=== PATIENT | male | born 1980 | race Caucasian/White ===

== ENCOUNTER 2019-12-28 12:23 | Inpatient (IN) | payer BC, OTHER ==
[~2019-12-28 12:23] MED LIST: Heparin 1,000 UNITS/ML VIAL ONE
[2019-12-28 13:01] LABS: #Basophils 0.1 thou/uL (0.0-0.2); #Eosinphils 0.1 thou/uL (0.0-0.7); #Lymphocytes 1.2 thou/uL (1.20-3.40); #Monocytes 0.5 thou/uL (0.11-0.59); #Neutrophils 13.4 thou/uL (1.40-6.50); %Basophils 0.3 % (0.0-1.0); %Lymphocytes 7.8 % (21.0-51.0); %Monocytes 3.2 % (0.0-10.0); %Neutrophils 87.7 % (42.0-75.0); Hemoglobin 10.5 g/dL (14.0-18.0); Mean Corpuscular HGB CONC 32.9 g/dL (32.0-36.0); Mean Corpuscular Volume 85.2 fL (78.0-98.0); Mean Platelet Volume 6.5 fL (7.4-10.4); Platelet Count 390 thou/uL (130-400); RBC Distribution Width 13.8 % (11.5-14.5); Red Blood Cell (RBC) Count 3.74 mill/uL (4.70-6.10); White Blood Cell (WBC) Count 15.2 thou/uL (4.8-10.8)
[2019-12-28 13:21] LABS: ALT (SGPT) 73 U/L (8-55); AST (SGOT) 33 U/L (5-34); Albumin 3.1 g/dL (3.5-5.0); Alkaline Phosphatase 142 U/L (40-110); Anion Gap 14 mmol/L (10-20); BUN (Urea Nitrogen) 10 mg/dL (8.9-20.6); Bilirubin, Total 1.1 mg/dL (0.2-1.2); Calc. Creatinine Clearance 0 mL/min (70-130); Calcium 8.4 mg/dL (7.8-10.44); Carbon Dioxide 20 mmol/L (22-29); Chloride 99 mmol/L (98-107); Estimated GFR-MDRD Greater than 90; Globulin 2.6 g/dL (2.4-3.5); Glucose 138 mg/dL (70-105); Potassium 3.9 mmol/L (3.5-5.1); Protein, Total 5.7 g/dL (6.0-8.3); Sodium 129 mmol/L (136-145)
[2019-12-28] MEDS ORDERED: Azithromycin 500 MG VIAL ONE (13:37)
[2019-12-28] MEDS ORDERED: cefTRIAXone\\ROCEPHIN 2 GM VIAL ONE (13:37)
[2019-12-28] MEDS ORDERED: Magnesium 2 GM/50 ML BAG (IN WATER) ONE (13:37)
[2019-12-28] MEDS ORDERED: PROVENTIL INHALER 6.7 G (200 INHALATIONS) ONE (13:44)
[2019-12-28] MEDS ORDERED: Albuterol 200 PUFF (6.7GM INHALER) ONE (13:52)
[2019-12-28] MEDS ORDERED: Acetaminophen 325 MG TAB PO PRN (14:05)
--- NOTE | 2019-12-28 14:09 | RAD ---
CHEST 1 VIEW: HISTORY: Dyspnea and shortness of breath. COMPARISON: 12/25/2019. FINDINGS: Minimal cardiomegaly. Developing bilateral vascular congestion and alveolar parenchymal changes thro ughout both lungs. There is evidence for small bilateral pleural effusions. IMPRESSION: Progressive bilateral vascular congestion and interstitial and alveolar diffuse parenchymal changes w orsening from the prior study with evidence for minimal cardiomegaly and small pleural effusions favo red to be worsening edema versus diffuse bilateral pneumonitis/pneumonia. POS: RRE
[2019-12-28] MEDS ORDERED: Sodium Chloride 0.9% 1,000 ML IV SCH (14:15)
[2019-12-28] MEDS ORDERED: Aspirin Chewable 81 MG TAB ONE (14:25)
[2019-12-28 14:26] LABS: CKMB 1.6 ng/mL (0-6.6)
[2019-12-28 14:26] LABS: INR-International Normal Ratio 1.2; Prothrombin Time 15.4 SEC (12.0-14.7)
[2019-12-28 14:27] LABS: PTT 34.8 SEC (22.9-36.1)
[2019-12-28 15:21] LABS: Bacteria/HPF None Seen HPF (None Seen); Bilirubin Negative (Negative); Blood, Urine Negative (Negative); Clarity Clear (Clear); Glucose, Urine (Dipstick) Normal (Negative); Leukocyte Negative Leu/uL (Negative); Nitrite Negative (Negative); Protein, Urine (Dipstick) 50 mg/dL (Neg-Trace); RBC/HPF 0-3 HPF (0-3); Squamous Epithelial 0-3 HPF (0-3); Urobilinogen 3 mg/dL (Less than 2)
[2019-12-28] MEDS ORDERED: Furosemide 40 MG/4 ML VIAL ONE (16:15)
[2019-12-28] MEDS ORDERED: CCU Electrolyte Replacement 1 EACH FS ONE (16:17)
[2019-12-28] MEDS ORDERED: Potassium Phosphate 15 MMOL in Sodium Chloride 0.9% 250 ML 250 ML IV PRN (16:19)
[2019-12-28] MEDS ORDERED: Potassium Phosphate 12 MMOL in Sodium Chloride 0.9% 250 ML 250 ML IV PRN (16:19)
[2019-12-28] MEDS ORDERED: Magnesium Oxide 400 MG TAB PO PRN ×2 (16:19)
[2019-12-28] MEDS ORDERED: Potassium Chloride 40 MEQ in Sodium Chloride 0.9% 250 ML 250 ML IVPB PRN (16:19)
[2019-12-28] MEDS ORDERED: Potassium Chloride 20 MEQ TAB PO PRN (16:19)
[2019-12-28] MEDS ORDERED: CCU ELECTROLYTE REPLACEMENT PROTOCOL FS PRN (16:19)
[2019-12-28] MEDS ORDERED: PHOS-NAK 1 PKT PACK PO PRN ×2 (16:19)
[2019-12-28] MEDS ORDERED: Potassium Chloride 40 MEQ in Premix Bag 1 BAG IVPB PRN (16:19)
[2019-12-28] MEDS ORDERED: Potassium Phosphate 9 MMOL in Sodium Chloride 0.9% 100 ML IVPB PRN (16:19)
[2019-12-28] MEDS ORDERED: Magnesium 2 GM/50 ML 2 GM in Premix Bag 1 BAG IVPB PRN (16:19)
[2019-12-28] MEDS ORDERED: Furosemide 40 MG/4 ML VIAL SLOW IVP SCH (16:45)
[2019-12-28 17:24] VITALS: BMI 36.4
[2019-12-28 17:26] LABS: Legionella Urinary Ag Negative (Negative); Strep pneumo Urine Ag NEGATIVE (NEGATIVE)
[2019-12-28] MEDS: ALPRAZolam 0.5 MG TAB PO PRN (19:39)
[2019-12-28] MEDS: Famotidine 20 MG TAB PO SCH (20:29)
--- NOTE | 2019-12-28 20:54 | CON ---
DATE OF CONSULTATION: 12/28/2019 CONSULTING PHYSICIAN: Dr. Talavera from [facility]. REASON FOR CONSULTATION: Shortness of breath. HISTORY OF PRESENT ILLNESS: The patient is an extremely pleasant 39-year-old who presents with a 2-1/2 month history of an increasing chronic cough, shortness of breath that has worsened over the last two weeks, dyspnea with exertion. He says he is a patient of Dr. Haley. He is currently being worked up for cardiac concerns. He has had elevated blood pressure. He was scheduled for a stress test and echo which got put off due to the COVID-19 pandemic. The patient presented to the ER three days ago with similar symptoms. He had a COVID test that time was negative. He had complained of a low-grade fever at that time up to 99.3. He was sent home after being prescribed a Z-Sanford. The patient said his cough has been dry. It was originally attributed to the use of lisinopril. He stopped that medication and the cough did not improve. He has had orthopnea and paroxysmal nocturnal dyspnea. PAST MEDICAL HISTORY: 1. Hypertension. 2. Hypothyroidism. 3. Chronic kidney disease. 4. Nephrolithiasis. PAST SURGICAL HISTORY: Hernia repair and kidney stone removal. SOCIAL HISTORY: He does not smoke. Does not consume alcohol. Does not use illicit drugs. 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 ALLERGIES: IODINE. FAMILY MEDICAL HISTORY: Unremarkable for current or past exposure to COVID-19 virus. REVIEW OF SYSTEMS: No chest pain. No hemoptysis, melena, hematochezia. No hematuria. No dysuria. PHYSICAL EXAMINATION: VITAL SIGNS: His pulse is 119, blood pressure 132/52, O2 saturation 98%, respiratory rate was originally in the 30s now has dropped into the 20s. GENERAL: He is a heavyset male who is in some mild respiratory distress. HEENT: Remarkable for class 3 Mallampati airway. NECK: No adenopathy or JVD. LUNGS: He has inspiratory crackles at both bases. Clear at the apices. CARDIAC: S1, S2, tachycardic. He has a summation gallop. ABDOMEN: Soft and nontender to palpation. EXTREMITIES: No clubbing or cyanosis. Trace edema. LABORATORY DATA: His BNP was 480. C-reactive protein 7.8. Sodium 122, potassium 3.9, chloride 99, CO2 of 20, BUN 10, creatinine 0.7, glucose 138. Alkaline phosphatase 142, AST 33, ALT 73, albumin 3.1. Troponin 0.107. INR is 1.2, PTT 34.8. White blood cell count 15.2, hematocrit 31.8, and platelet count 390, with 87% neutrophils, 7% lymphocytes. His sedimentation rate was 15. Urinalysis shows some proteinuria. His x-ray shows bilateral lower lobe infiltrates. ASSESSMENT: This is a 39-year-old male presenting with a subacute history of increasing shortness of breath, dry cough, and an elevated BNP. Differential in this case would be congestive heart failure, infectious etiology such as COVID-19, or other infection. His BNP and slightly elevated troponin point to this being cardiac in etiology. However, his demographics including his age group would indicate that he is at risk for COVID-19. RECOMMENDATION: 1. Agree with COVID-19 isolation and repeating the test. 2. I would go ahead and give him a dose of diuretics to see if this will improve his breathing. 3. Trend his BNP. 4. Follow up repeat COVID serology testing. 5. We will withhold hydroxychloroquine and Zithromax at this time. Treating with a broad-spectrum antibiotic for atypical pneumonia would be okay. I will put him on some Levaquin for that. Thank you for the referral. Job ID: [id number]
--- NOTE | 2019-12-28 23:09 | HP ---
CHIEF COMPLAINT: Shortness of breath. HISTORY OF PRESENT ILLNESS: The patient is a very pleasant 39-year-old male, who presents to the hospital with complaints of shortness of breath. The patient has no significant medical history. The patient states that about in September, he was initially seen at [facility] with significant weakness on his right side. At this time, he was noted to have significantly elevated blood pressure. He stated that he was put on blood pressure medication. He took his blood pressure medications for about 35 days according to the patient and then he got an appointment with the primary care doctor who then noted that his blood pressure was low, so his medication was stopped. The patient stated that for the past few months, he has been visiting [facility] for various symptoms which have included low blood pressure. He recently visited [facility] about 2-1/2 weeks ago for a cough and shortness of breath, and at this time, he was tested for COVID which was negative. He then presented to our hospital on 12/24 with complaints of shortness of breath, and at this time, another COVID test was done which also was negative, and he was sent home with azithromycin and hydroxychloroquine. The patient states that he has been having shortness of breath on exertion. He denies any weight gain, however, is positive for orthopnea. He states he has been having a low-grade fever and a very dry nonproductive cough. Denies any sick contacts. PAST MEDICAL HISTORY: None. PAST SURGICAL HISTORY: He has had a kidney stone removed and sinus surgery. SOCIAL HISTORY: Denies any alcohol use, drug use, or smoking history. He is a full code. ALLERGIES: HE IS ALLERGIC TO IODINE. REVIEW OF SYSTEMS: All negative except for the ones mentioned above in the HPI. MEDICATIONS: He was supposed to be on azithromycin and hydroxychloroquine which were prescribed at his last visit. PHYSICAL EXAMINATION: VITAL SIGNS: Temperature of 98.8, blood pressure 130/54, heart rate of 119-120, 100% on room air. GENERAL: He is awake, alert, and oriented x3. Does not appear in significant distress. CV: S1, S2 present. Mildly tachycardic. LUNGS: He has some crackles to bilateral lower lung bases. No rhonchi or wheezes noted. ABDOMEN: Soft and nontender. Bowel sounds are present x2. Obese. EXTREMITIES: He has some lower extremity pitting edema. Pedal pulses are present x2. NEUROVASCULAR: No focal deficits noted. SKIN: No cuts, lesions, or bruises noted. LABORATORY DATA: CBC; WBCs of 15.2, hemoglobin of 10.5, hematocrit of 31.8. His platelets are 390. His ESR is 15. Sodium of 129, potassium of 3.9, BUN of 10, creatinine 0.78. His troponin 0.107. His CRP is 7.85. His BNP is 480. Mildly elevated ALT at 73. Alkaline phosphatase is 142. IMAGING STUDIES: He did have a chest x-ray which indicated bilateral vascular congestion and interstitial and alveolar diffuse parenchymal changes worsening from before. Minimal cardiomegaly was noted. ASSESSMENT AND PLAN: The patient is a 39-year-old male, who presents to the hospital with complaints of shortness of breath. 1. Shortness of breath. This could be infectious versus cardiac reasons. I am leaning more toward cardiac. He has had 2 negative COVID testing, that is what he told me, he had one done 2-1/2 weeks ago in [facility] and then another one done on the in our ER, and then he has another one that is pending. He has been on antibiotics with no significant effect. I will continue the antibiotics for now, however, I will go ahead and order an echocardiogram. His BNP has been mildly elevated. He does appear to have possible heart failure symptoms which we will continue to treat. He has been given Lasix. He had a good amount of diuresis. We will trend his troponins. His EKG did not have any significant changes. If this is early heart failure, we will have to get Cardiology involved. We will also check a TSH. 2. Mild leukocytosis, unclear at this time. We will continue to monitor. We will continue the antibiotics. 3. Mildly elevated LFTs and alkaline phosphatase. Again, this could be some vascular congestion. We will continue to monitor. 4. Hyponatremia. This again could be secondary to volume overload. We will continue to monitor. 5. DVT prophylaxis. We will put the patient on subcu Lovenox. Job ID: [id number]
[2019-12-29 04:30] LABS: #Eosinphils 0.2 thou/uL (0.0-0.7); #Lymphocytes 1.4 thou/uL (1.20-3.40); #Monocytes 0.8 thou/uL (0.11-0.59); #Neutrophils 14.8 thou/uL (1.40-6.50); %Basophils 0.2 % (0.0-1.0); %Eosinophils 1.3 % (0.0-10.0); %Lymphocytes 8.3 % (21.0-51.0); %Monocytes 4.5 % (0.0-10.0); %Neutrophils 85.7 % (42.0-75.0); Hemoglobin 10.2 g/dL (14.0-18.0); Mean Corpuscular HGB CONC 33.7 g/dL (32.0-36.0); Mean Corpuscular Hemoglobin 28.9 pg (27.0-31.0); Mean Corpuscular Volume 85.7 fL (78.0-98.0); Mean Platelet Volume 6.5 fL (7.4-10.4); Platelet Count 375 thou/uL (130-400); RBC Distribution Width 13.9 % (11.5-14.5); Red Blood Cell (RBC) Count 3.52 mill/uL (4.70-6.10); White Blood Cell (WBC) Count 17.2 thou/uL (4.8-10.8)
[2019-12-29 04:55] LABS: ALT (SGPT) 71 U/L (8-55); AST (SGOT) 35 U/L (5-34); Albumin 2.9 g/dL (3.5-5.0); Alkaline Phosphatase 141 U/L (40-110); Anion Gap 15 mmol/L (10-20); BUN (Urea Nitrogen) 8 mg/dL (8.9-20.6); Calc. Creatinine Clearance 264 mL/min (70-130); Calcium 8.3 mg/dL (7.8-10.44); Carbon Dioxide 18 mmol/L (22-29); Chloride 105 mmol/L (98-107); Estimated GFR-MDRD Greater than 90; Globulin 2.5 g/dL (2.4-3.5); Glucose 114 mg/dL (70-105); Potassium 3.9 mmol/L (3.5-5.1); Protein, Total 5.4 g/dL (6.0-8.3); Sodium 134 mmol/L (136-145)
--- NOTE | 2019-12-29 08:14 | PRG ---
DATE OF SERVICE: 12/29/2019 SUBJECTIVE: Adrián is breathing much better today than he was yesterday. He did receive some diuretics yesterday afternoon, diuresed 3500 mL. PHYSICAL EXAMINATION: VITAL SIGNS: His temperature is 96.7, pulse 105, blood pressure 114/46, O2 saturation 98%. HEENT: Unremarkable. NECK: No adenopathy or JVD. LUNGS: He has diminished crackles in the bases. CARDIAC: S1 and S2 regular with a summation gallop. ABDOMEN: Soft. EXTREMITIES: No edema. LABORATORY DATA: White blood cell count 17.2, hematocrit 30.2, platelet count 375. Sodium 134, potassium 3.9, chloride 105, CO2 of 18 creatinine 0.6, glucose 114. BNP is 458. Troponin 0.20. His urinary tests for Legionella and Strep were negative. The COVID test is negative, although he has had 2 negative COVID tests within the last week. ASSESSMENT: I think we are likely dealing with congestive heart failure, perhaps from diastolic dysfunction. RECOMMENDATIONS: I would recommend giving him another dose of diuretics. Recommend echocardiogram and perhaps even a Cardiology consultation. He is stable for transfer to the telemetry unit. Job ID: [id number]
[2019-12-29] MEDS: Famotidine 20 MG TAB PO SCH ×2 (08:56→19:57)
[2019-12-29] MEDS: Enoxaparin Sodium 40 MG/0.4 ML SYRINGE SC SCH (08:56)
[2019-12-29] MEDS ORDERED: Furosemide 40 MG/4 ML VIAL SLOW IVP SCH (09:00)
[2019-12-29] MEDS: ALPRAZolam 0.5 MG TAB PO PRN ×2 (09:03→20:05)
[2019-12-29] MEDS: cefTRIAXone\\ROCEPHIN 2 GM in Sodium Chloride 0.9% 100 ML IVPB SCH (13:59)
--- NOTE | 2019-12-29 18:32 | PDOC.HOSPP ---
- Subjective Encounter Date: 12/29/19 Encounter Time: 17:00 Subjective: pt up in bed is having chills. No chest pain or sob - Objective Vital Signs & Weight: Vital Signs (12 hours) Temp Pulse Resp BP Pulse Ox 12/29/19 16:15 97.5 F L 105 H 24 H 104/51 L 98 12/29/19 11:49 97.4 F L 105 H 30 H 103/47 L 100 12/29/19 11:00 38 H 12/29/19 08:00 97.1 F L 100 12/29/19 06:45 100 Weight Admit Weight 276 lb 7.355 oz Weight 276 lb 7.355 oz Most Recent Monitor Data Heart Rate from ECG 107 NIBP 104/46 NIBP BP-Mean 65 Respiration from ECG 44 SpO2 99 I&O: 12/28/19 12/29/19 12/30/19 06:59 06:59 06:59 Intake Total 300 540 Output Total 3550 1725 Balance -0150 -1587 Result Diagrams: 12/29/19 04:04 12/29/19 04:04 Hospitalist ROS - Review of Systems Constitutional: reports: chills Respiratory: denies: cough, dry, shortness of breath, hemoptysis, SOB with excertion, pleuritic pain, sputum, wheezing, other Cardiovascular: denies: chest pain, palpitations, orthopnea, paroxysmal noc. dyspnea, edema, light headedness, other Gastrointestinal: denies: nausea, vomiting, abdominal pain, diarrhea, constipation, melena, hematochezia, other - Medication Medications: Active Medications Generic Name Dose Route Start Last Admin Trade Name Kaliaq PRN Reason Stop Dose Admin Alprazolam 0.5 mg 12/28/19 18:41 12/29/19 09:03 Xanax PO 0.5 mg BIDPRN PRN Administration Anxiety Enoxaparin Sodium 40 mg 12/29/19 09:00 12/29/19 08:56 Lovenox SC 40 mg 0900 BRITTANY Administration Famotidine 20 mg 12/28/19 21:00 12/29/19 08:56 Pepcid PO 20 mg BID BRITTANY Administration Furosemide 40 mg 12/29/19 09:00 12/29/19 08:58 Lasix SLOW IVP 40 mg DAILY BRITTANY Administration Ceftriaxone Sodium 2 gm/ 100 mls @ 200 mls/hr 12/29/19 13:15 12/29/19 13:59 Sodium Chloride IVPB 100 mls Q24HR BRITTANY Administration - Exam Neck: negative: supple, symmetric, no JVD, no thyromegaly, no lymphadenopathy, no carotid bruit, JVD Heart: negative: RRR, no murmur, no gallops, no rubs, normal peripheral pulses, irregular, diminshed peripheral pulses, murmur present, II/IV, III/IV Respiratory - other findings: diminished breath sound to bases Gastrointestinal: negative: soft, non-tender, non-distended, normal bowel sounds , no palpable masses, no hepatomegaly, no splenomegaly, no bruit, no guarding, no rigidity, tender to palpation, distended, diminished bowl sounds, voluntary guarding Extremities: 1+ LE edema Hosp A/P (1) Sepsis Code(s): A41.9 - SEPSIS, UNSPECIFIED ORGANISM Status: Acute (2) Heart failure Code(s): I50.9 - HEART FAILURE, UNSPECIFIED Status: Acute (3) Obesity Code(s): E66.9 - OBESITY, UNSPECIFIED Status: Acute (4) LFTs abnormal Code(s): R94.5 - ABNORMAL RESULTS OF LIVER FUNCTION STUDIES Status: Acute (5) Elevated troponin Code(s): R79.89 - OTHER SPECIFIED ABNORMAL FINDINGS OF BLOOD CHEMISTRY Status : Acute (6) Bacteremia Code(s): R78.81 - BACTEREMIA Status: Acute (7) Leukocytosis Code(s): D72.829 - ELEVATED WHITE BLOOD CELL COUNT, UNSPECIFIED Status: Acute - Plan pt has had 2 covid testing one in [facility] and one here on 12/24 which has been negative. will have third one that is pending. His blood cx indicate streptococcus. ID has been consulted. echo ordered. will hold off on iv lasix.
--- NOTE | 2019-12-29 20:08 | CON ---
DATE OF CONSULTATION: 12/29/2019 REASON FOR CONSULTATION: Possible COVID versus an alternate infectious process. HISTORY OF PRESENT ILLNESS: A 39-year-old with history of hypertension and nephrolithiasis, who has been sick since the end of October with general malaise and then fever. He initially felt that would be a transient illness, but due to persistence, he saw his primary physician, end up in the emergency room, had COVID test, which was negative recently. Because of persistence of symptoms, he was brought in, readmitted and placed in isolation and he is now in the COVID rule out unit with a second test pending. He is somewhat diaphoretic. He denies headaches. No visual symptoms, sore throat, odynophagia, or dysphagia. No anosmia. No back pain or neck pain. No chest pain. Coughing, but no sputum production. Mild dyspnea. No abdominal pain or diarrhea. No genitourinary symptoms. No joint symptoms. No neurological symptoms. PAST MEDICAL HISTORY: Nephrolithiasis, hypertension, and hypothyroidism. 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 Has a and two children. He does not smoke. No alcoholic beverage use. No drug use. FAMILY HISTORY: Noncontributory. ALLERGIES: IODINE. MEDICATIONS: He had not been taking any medication other than OTC. Now he is on: 1. Levofloxacin. 2. Lovenox. 3. Xanax. 4. Pepcid. 5. Magnesium. 6. Potassium. PHYSICAL EXAMINATION: VITAL SIGNS: With a T-max 100.8, blood pressure 103/47, pulse 105, respirations 30, and O2 saturation 100. GENERAL: Appears a little bit apprehensive. He is oriented. Follows commands. SKIN: Normal. There is no lymphadenopathy. HEENT: Ocular movements conjugate. Conjunctivae normal. Oral cavity normal. Teeth in good shape. NECK: Supple. No jugular vein distention. No thyromegaly. No tenderness. LUNGS: Symmetric air entry. HEART: Showed diminished heart sounds. S1 and S2. No obvious murmurs. No S3. Regular rate. ABDOMEN: Soft, not distended or tender. No ascites. No bladder distention. EXTREMITIES: No joint inflammatory activity. NEURO: Nonfocal including cognitive function. LABORATORY DATA: White cell count is 15.2 and now 17.2, hemoglobin 10.2, MCV 85 , and platelets 375 with 85% neutrophils. INR 1.2. Creatinine 0.68, sodium 134, AST 35, ALT 71, and alkaline phosphatase 141. Troponin 0.2 and BNP was 458. Albumin 2.9. Procalcitonin 0.18. Urinalysis; 4 to 6 wbc's, 50 protein, and 3 urobilinogen. Strep pneumoniae antigen and Legionella antigen in urine negative. The second COVID test is pending. The patient had a chest CT three days ago, which demonstrated multifocal infiltrates more central than peripheral and now we have 2 sets of blood cultures with Streptococcus species obtained about 15 minutes apart. ASSESSMENT: 1. Protracted febrile illness, now going on two months with some cough, general malaise, and dyspnea. 2. Bilateral pulmonary infiltrates. 3. Neutrophilia. 4. Streptococcal bacteremia. DISCUSSION: Differential diagnosis includes endocarditis due to viridans Streptococcus as the more likely scenario, covid is less likely. The second test is pending though. We will have to wait for that before we remove him from isolation and order an echo and then may be a transesophageal echocardiogram. We will wait for the identification of the organism. In the meantime, we will switch him to Rocephin. Other possibilities such as an intraabdominal inflammatory process are less likely community-acquired pneumonia due to a Streptococcus, non-Strep pneumonia is not likely, but not completely ruled out. There is no evidence of any spinal or other bone/joint inflammatory process at the moment. Job ID: [id number] MTDD
[2019-12-30 05:23] LABS: Anion Gap 13 mmol/L (10-20); BUN (Urea Nitrogen) 11 mg/dL (8.9-20.6); Calc. Creatinine Clearance 264 mL/min (70-130); Calcium 8.2 mg/dL (7.8-10.44); Carbon Dioxide 21 mmol/L (22-29); Chloride 104 mmol/L (98-107); Estimated GFR-MDRD Greater than 90; Glucose 110 mg/dL (70-105); Potassium 3.7 mmol/L (3.5-5.1); Sodium 134 mmol/L (136-145)
[2019-12-30 05:24] LABS: ALT (SGPT) 74 U/L (8-55); AST (SGOT) 35 U/L (5-34); Albumin 2.8 g/dL (3.5-5.0); Alkaline Phosphatase 136 U/L (40-110); Bilirubin, Direct 0.4 mg/dL (0.1-0.3); Bilirubin, Total 0.7 mg/dL (0.2-1.2); Protein, Total 5.2 g/dL (6.0-8.3)
[2019-12-30 05:26] LABS: #Basophils 0.1 thou/uL (0.0-0.2); #Eosinphils 0.4 thou/uL (0.0-0.7); #Lymphocytes 1.6 thou/uL (1.20-3.40); #Monocytes 0.9 thou/uL (0.11-0.59); #Neutrophils 13.4 thou/uL (1.40-6.50); %Basophils 0.3 % (0.0-1.0); %Eosinophils 2.3 % (0.0-10.0); %Lymphocytes 9.7 % (21.0-51.0); %Monocytes 5.5 % (0.0-10.0); %Neutrophils 82.2 % (42.0-75.0); Hemoglobin 10.1 g/dL (14.0-18.0); Mean Corpuscular HGB CONC 30.5 g/dL (32.0-36.0); Mean Corpuscular Hemoglobin 26.8 pg (27.0-31.0); Mean Corpuscular Volume 88.1 fL (78.0-98.0); Platelet Count 425 thou/uL (130-400); RBC Distribution Width 14.1 % (11.5-14.5); Red Blood Cell (RBC) Count 3.75 mill/uL (4.70-6.10); White Blood Cell (WBC) Count 16.3 thou/uL (4.8-10.8)
[2019-12-30 05:45] LABS: HBSAg Index 0.13 S/CO (0-0.99); Hep A IgM AB Non-Reactive (NonReactive); Hep A IgM S/CO 0.08 S/CO (0-0.79); Hep B Surf Ag Non-Reactive S/CO (NonReactive); Hep C IgG Ab Non-Reactive (NonReactive); Hep C Index 0.15 S/CO (0-0.79); Hepatitis B Core IgM Abs Non-Reactive (NonReactive)
[2019-12-30] MEDS: Famotidine 20 MG TAB PO SCH ×2 (08:30→19:54)
[2019-12-30] MEDS: Enoxaparin Sodium 40 MG/0.4 ML SYRINGE SC SCH (08:30)
--- NOTE | 2019-12-30 11:08 | PRG ---
DATE OF SERVICE: SUBJECTIVE: Adrián Arora is a 39-year-old gentleman. This morning, he is awake, alert, and responsive. OBJECTIVE: VITAL SIGNS: Temperature 96, pulse 107, respirations 18, sats 91 on 2 L, blood pressure 100/52. CHEST: No wheezing. Minimal crackles. CARDIAC: Normal S1 and S2. ABDOMEN: No masses. ASSESSMENT: His chest x-ray looks like CHF. He had alpha hemolytic strep in the blood. Sepsis, probably present antibiotic. White count is 16,000. Streptococcus sepsis, pneumonia. Continue ceftriaxone. Infectious Disease consulted. Trying to get him off isolation once he had his serology back for the coronavirus. Pulmonary will follow. Job ID: [id number]
--- NOTE | 2019-12-30 12:19 | PDOC.HOSPP ---
- Subjective Encounter Date: 12/30/19 Encounter Time: 09:15 Subjective: no cough or expectoration awake and responds well no chest pain no h/o iv drug use in his life except for occasional thc use - Objective Vital Signs & Weight: Vital Signs (12 hours) Temp Pulse Resp BP Pulse Ox 12/30/19 11:15 97.6 F 106 H 20 102/53 L 98 12/30/19 08:35 96.8 F L 107 H 18 104/52 L 97 12/30/19 07:07 95 12/30/19 05:00 98.3 F 108 H 22 H 108/49 L 95 12/30/19 01:30 96.9 F L 106 H 22 H 106/50 L 98 Weight Admit Weight 276 lb 7.355 oz Weight 276 lb 7.355 oz Most Recent Monitor Data Heart Rate from ECG 107 NIBP 104/46 NIBP BP-Mean 65 Respiration from ECG 44 SpO2 99 I&O: 12/29/19 12/30/19 12/31/19 06:59 06:59 06:59 Intake Total 300 2540 Output Total 3550 2875 Balance -3250 -335 Result Diagrams: 12/30/19 04:35 12/30/19 04:35 Hospitalist ROS - Medication Medications: Active Medications Generic Name Dose Route Start Last Admin Trade Name Freq PRN Reason Stop Dose Admin Alprazolam 0.5 mg 12/28/19 18:41 12/29/19 20:05 Xanax PO 0.5 mg BIDPRN PRN Administration Anxiety Enoxaparin Sodium 40 mg 12/29/19 09:00 12/30/19 08:30 Lovenox SC 40 mg 0900 BRITTANY Administration Famotidine 20 mg 12/28/19 21:00 12/30/19 08:30 Pepcid PO 20 mg BID BRITTANY Administration Ceftriaxone Sodium 2 gm/ 100 mls @ 200 mls/hr 12/29/19 13:15 12/29/19 13:59 Sodium Chloride IVPB 100 mls Q24HR BRITTANY Administration - Exam General Appearance: awake alert Eye: PERRL, anicteric sclera ENT: no oropharyngeal lesions, moist mucosa Neck: supple, no JVD Heart: RRR, no murmur Respiratory: no wheezes, no rales Gastrointestinal: soft, non-tender, non-distended, normal bowel sounds Extremities: no cyanosis, no edema Neurological: cranial nerve grossly intact, no focal deficits Psychiatric: normal affect, A&O x 3 Hosp A/P (1) Sepsis Code(s): A41.9 - SEPSIS, UNSPECIFIED ORGANISM Status: Acute Qualifiers: Sepsis type: Streptococcus, unspecified Severe sepsis shock status: without septic shock (2) Streptococcal bacteremia Code(s): R78.81 - BACTEREMIA; B95.5 - UNSP STREPTOCOCCUS THE CAUSE OF DISEASES CLASSD ELSWHR Status: Acute (3) Acute exacerbation of CHF (congestive heart failure) Code(s): I50.9 - HEART FAILURE, UNSPECIFIED Status: Acute Qualifiers: Heart failure type: diastolic Qualified Code(s): I50.33 - Acute on chronic diastolic (congestive) heart failure (4) Hypothyroidism Code(s): E03.9 - HYPOTHYROIDISM, UNSPECIFIED Status: Chronic Qualifiers: Hypothyroidism type: unspecified Qualified Code(s): E03.9 - Hypothyroidism , unspecified (5) Obesity Code(s): E66.9 - OBESITY, UNSPECIFIED Status: Chronic Qualifiers: Obesity classification: adult class 2 (BMI 35 - 39.9) (6) Chronic anemia Code(s): D64.9 - ANEMIA, UNSPECIFIED Status: Chronic - Plan is on ceftriaxone, await full culture results blood cs x2 is +ve for alpha hemolytic strep had covid 19 test x2 on 12/[facility] and 12/26 here both were -ve dc airborne and droplet precautions echo is pending, likely KATHLEEN hemostable
[2019-12-30] MEDS: cefTRIAXone\\ROCEPHIN 2 GM in Sodium Chloride 0.9% 100 ML IVPB SCH (13:03)
[2019-12-30] MEDS: ALPRAZolam 0.5 MG TAB PO PRN ×2 (13:36→23:19)
--- NOTE | 2019-12-30 23:36 | PRG ---
DATE OF SERVICE: 12/30/2019 SUBJECTIVE: Feeling better. No respiratory symptoms. No abdominal pain anymore. No low back pain. OBJECTIVE: VITAL SIGNS: His temperature normalized. O2 saturations are 100%. BP 107/52. Pulse 109. GENERAL: Awake, alert, and oriented. LUNGS: Clear. HEART: S1 and S2, regular rate. ABDOMEN: Soft, nondistended. NEURO: Nonfocal. LABORATORY DATA: White cell count 16.3, hemoglobin is 10.1, platelets 425, 82% neutrophils, total neutrophil count started at 13.4 and is still at 13.4 at the moment. Chemistry with a creatinine 0.68, AST 35, ALT 74, and alkaline phosphatase 136. It looks like a repeat COVID test was negative. The echocardiogram report demonstrates EF of 55%, normal right ventricle, normal aortic valve, mild tricuspid regurgitation. ASSESSMENT AND DISCUSSION: Protracted febrile illness, some cough, dry malaise, dyspnea, bilateral pulmonary infiltrates, neutrophilia, and streptococcal bacteremia. The 2D echo read two valves as normal. The other valves will need to be commented on and he may need a transesophageal echocardiography. The Streptococcus was identified as alpha hemolytic. We will go ahead and image his abdomen and pelvis to rule out hepatic abscess or other intraabdominal inflammatory process and then go from there. Job ID: [id number]
--- NOTE | 2019-12-31 01:45 | CON ---
DATE OF CONSULTATION: 12/30/2019 INDICATION FOR CONSULTATION: A 39-year-old gentleman who has been having febrile illnesses for the last couple of months after he underwent a procedure for nephrolithiasis. He said he has not been feeling well since that time, and he has actually been tested twice and ruled out for COVID-19. He continued to have symptoms with not feeling well, palpitations, tachycardia, somewhat diaphoretic. He had an echocardiogram performed today, which showed a normal ejection fraction of 50% to 55% and did not have any significant evidence of vegetations on any of the valves, but he apparently has positive blood cultures for I believe strep, and since he has positive blood cultures and I did not see things specifically on the echocardiogram, it is best that he undergo a transesophageal echocardiogram and this has been ordered I believe. I have seen the patient today and discussed this with him. We will plan for transesophageal echocardiogram on Wednesday. I did explain to him that should he be found to have endocarditis, then he will need to be on long-term antibiotics for at least IV, most likely for 6 weeks. As far as his past medical history, he has no previous cardiac history that he is aware of. He had some history of hypertension at the time of the nephrolithiasis and also has hypothyroidism. He was started on actually lisinopril. I thought this may have been the etiology of his symptoms with the shortness of breath and also the not feeling well, the fevers, and the coughing. SOCIAL HISTORY: He is an commercial subcontractor, working with natural gas. He is , has 2 children. He has no alcohol or tobacco abuse. No other illicit drug use. FAMILY HISTORY: No family history of early heart disease. ALLERGIES: HE IS ALLERGIC TO THE IODINE. MEDICATIONS: He is on antibiotics in the form of levofloxacin. He is on Lovenox. He is taking magnesium, potassium, and Pepcid. REVIEW OF SYSTEMS: A 12-point review of systems is relatively unremarkable except for what is noted in the history of present illness. PHYSICAL EXAMINATION: GENERAL: Reveals a well-developed, well-nourished gentleman, who is in no acute distress at this time. He is alert. He is oriented. He is very pleasant. VITAL SIGNS: Blood pressure is 107/52; heart rate is 109 to 114, appears to be sinus tach; respiratory rate 25. He is afebrile. O2 saturation is 100%. HEENT: Shows the head to be normocephalic and atraumatic. Carotid pulses are present without any bruits. CHEST: Clear to auscultation. I did not hear any rales, rhonchi, or wheezing. CARDIOVASCULAR: Reveals a tachycardia. He has a very soft systolic murmur over the upper sternal border. Otherwise, there were no diastolic murmurs that I could elicit. ABDOMEN: Soft and nontender. EXTREMITIES: Show no clubbing, cyanosis, or edema. No ecchymosis. NEUROLOGIC: He appears to be intact. LABORATORY DATA: Most recent shows a WBC of 16.3, hemoglobin was 10, hematocrit was 33, platelet count was 425,000. His sodium was 134, potassium is 3.7, chloride was 104, bicarb was 21, BUN was 11 with a creatinine of 0.68. Blood sugar was 110. His BNP yesterday was 458. Troponin I was 0.2, which may be due to the tachycardia. He has also had a troponin I on admission of 0.107. C-reactive protein was elevated at 7.85. AST was 35 and ALT was 74. Alkaline phosphatase was 136. These are all elevated. IMPRESSION: Febrile illness of uncertain etiology with evidence of streptococcal infection on the blood cultures that were drawn on 12/27, with no evidence of vegetations noted on the transthoracic echocardiogram. We will plan for a transesophageal echocardiogram on Wednesday. He will continue on the antibiotics. We appreciate you asking us for this consultation. We will be more than happy to continue to follow the patient with you throughout this hospital course. As far as his other medical problems, these will be dealt with by the primary care service. Job ID: [id number]
[2019-12-31 05:10] LABS: Anion Gap 13 mmol/L (10-20); BUN (Urea Nitrogen) 12 mg/dL (8.9-20.6); Calc. Creatinine Clearance 260 mL/min (70-130); Calcium 8.3 mg/dL (7.8-10.44); Carbon Dioxide 22 mmol/L (22-29); Chloride 105 mmol/L (98-107); Estimated GFR-MDRD Greater than 90; Glucose 111 mg/dL (70-105); Potassium 3.7 mmol/L (3.5-5.1); Sodium 136 mmol/L (136-145)
[2019-12-31] MEDS: Famotidine 20 MG TAB PO SCH ×2 (07:49→20:02)
[2019-12-31] MEDS: Enoxaparin Sodium 40 MG/0.4 ML SYRINGE SC SCH (07:49)
--- NOTE | 2019-12-31 10:17 | PDOC.HOSPP ---
- Subjective Encounter Date: 12/31/19 Encounter Time: 09:00 Subjective: no chest pain or sob or palp is ambulating in room no abd pain or nausea - Objective Vital Signs & Weight: Vital Signs (12 hours) Temp Pulse Resp BP Pulse Ox 12/31/19 07:19 96 12/31/19 07:05 98 F 111 H 20 104/51 L 96 12/31/19 04:00 98.6 F 107 H 30 H 106/53 L 97 12/30/19 23:05 99.1 F 109 H 25 H 107/51 L 98 Weight Admit Weight 276 lb 7.355 oz Weight 276 lb 7.355 oz Most Recent Monitor Data Heart Rate from ECG 107 NIBP 104/46 NIBP BP-Mean 65 Respiration from ECG 44 SpO2 99 I&O: 12/30/19 12/31/19 01/01/20 06:59 06:59 06:59 Intake Total 2540 Output Total 2875 Balance -335 Result Diagrams: 12/30/19 04:35 12/31/19 04:18 Hospitalist ROS - Medication Medications: Active Medications Generic Name Dose Route Start Last Admin Trade Name Freq PRN Reason Stop Dose Admin Alprazolam 0.5 mg 12/28/19 18:41 12/30/19 23:19 Xanax PO 0.5 mg BIDPRN PRN Administration Anxiety Enoxaparin Sodium 40 mg 12/29/19 09:00 12/31/19 07:49 Lovenox SC 40 mg 0900 BRITTANY Administration Famotidine 20 mg 12/28/19 21:00 12/31/19 07:49 Pepcid PO 20 mg BID BRITTANY Administration Ceftriaxone Sodium 2 gm/ 100 mls @ 200 mls/hr 12/29/19 13:15 12/30/19 13:03 Sodium Chloride IVPB 100 mls Q24HR BRITTANY Administration - Exam General Appearance: awake alert Eye: PERRL, anicteric sclera ENT: no oropharyngeal lesions, moist mucosa Neck: supple, no JVD Heart: RRR, no murmur Respiratory: no wheezes, no rales Gastrointestinal: soft, non-tender, non-distended, normal bowel sounds Extremities: no cyanosis, no edema Neurological: cranial nerve grossly intact, no focal deficits Psychiatric: normal affect, A&O x 3 Hosp A/P (1) Sepsis Code(s): A41.9 - SEPSIS, UNSPECIFIED ORGANISM Status: Acute Qualifiers: Sepsis type: Streptococcus, unspecified Severe sepsis shock status: without septic shock (2) Streptococcal bacteremia Code(s): R78.81 - BACTEREMIA; B95.5 - UNSP STREPTOCOCCUS THE CAUSE OF DISEASES CLASSD ELSWHR Status: Acute (3) Acute exacerbation of CHF (congestive heart failure) Code(s): I50.9 - HEART FAILURE, UNSPECIFIED Status: Acute Qualifiers: Heart failure type: diastolic Qualified Code(s): I50.33 - Acute on chronic diastolic (congestive) heart failure (4) Hypothyroidism Code(s): E03.9 - HYPOTHYROIDISM, UNSPECIFIED Status: Chronic Qualifiers: Hypothyroidism type: unspecified Qualified Code(s): E03.9 - Hypothyroidism , unspecified (5) Obesity Code(s): E66.9 - OBESITY, UNSPECIFIED Status: Chronic Qualifiers: Obesity classification: adult class 2 (BMI 35 - 39.9) (6) Chronic anemia Code(s): D64.9 - ANEMIA, UNSPECIFIED Status: Chronic - Plan is on ceftriaxone, await full culture results blood cs x2 is +ve for alpha hemolytic strep had covid 19 test x2 on 12/25 at [facility] and 12/26 here both were -ve dc airborne and droplet precautions echo TTE shows no obvious veg, likely KATHLEEN in am CT abd to r/o abscess, contrast per in view of iodine allergy? hemostable
--- NOTE | 2019-12-31 11:51 | PRG ---
DATE OF SERVICE: 12/31/2019 SUBJECTIVE: Adrián Arora this morning is doing well. OBJECTIVE: VITAL SIGNS: Temperature 98, pulse 111, respiratory rate 20, oxygen saturation 90% on room air, blood pressure 100/51. CHEST: No wheezing, no crackles. CARDIAC: Normal S1, S2. No gallops. ABDOMEN: No mass. LABORATORY DATA: His serology for coronavirus negative. Lytes were normal. Echo was normal. ASSESSMENT: Alpha Strep sepsis. Possible diastolic dysfunction, possibly pneumonia. PLAN: Antibiotics per Infectious Disease. PT supportive care. We will follow. Job ID: [id number]
--- NOTE | 2019-12-31 12:50 | PDOC.CPN ---
- Subjective Date: 12/31/19 Time: 12:56 Interval history: The pt seen and examined. No overnight events. No cardiac complaints. The pt denied any questions or concerns about KATHLEEN - Objective Allergies/Adverse Reactions: Allergies Allergy/AdvReac Type Severity Reaction Status Date / Time Iodine and Iodide Containing Allergy Unknown Verified 12/29/19 15:09 Produc Visit Medications: Current Medications Acetaminophen (Tylenol) 650 mg PO Q4H PRN PRN Reason: Headache/Fever/Mild Pain (1-3) Alprazolam (Xanax) 0.5 mg PO BIDPRN PRN PRN Reason: Anxiety Last Admin: 12/30/19 23:19 Dose: 0.5 mg Carvedilol (Coreg) 1.5625 mg PO NOW [facility] Carvedilol (Coreg) 1.5625 mg PO BID[facility] Enoxaparin Sodium (Lovenox) 40 mg SC 0900 [facility] Last Admin: 12/31/19 07:49 Dose: 40 mg Famotidine (Pepcid) 20 mg PO BID [facility] Last Admin: 12/31/19 07:49 Dose: 20 mg Ceftriaxone Sodium 2 gm/ (Sodium Chloride) 100 mls @ 200 mls/hr IVPB Q24HR [facility] Last Admin: 12/30/19 13:03 Dose: 100 mls Vital Signs & Weight: Vital Signs Temp Pulse Resp BP Pulse Ox 12/31/19 11:03 97.4 F L 108 H 20 107/53 L 98 12/31/19 07:19 96 12/31/19 07:05 98 F 111 H 20 104/51 L 96 12/31/19 04:00 98.6 F 107 H 30 H 106/53 L 97 Admit Weight 276 lb 7.355 oz Weight 276 lb 7.355 oz - Physical Exam General: alert & oriented x3 HEENT: mucus membranes moist Neck: supple neck Cardiac: regular rate and rhythm, S1/S2 Lungs: clear to auscultation - Labs Result Diagrams: 12/30/19 04:35 12/31/19 04:18 Troponin/CKMB CK-MB (CK-2) 1.6 ng/mL (0-6.6) 12/28/19 12:44 Troponin I 0.200 ng/mL (< 0.028) H 12/29/19 04:04 - Telemetry Sinus rhythms and dysrhythmias: sinus rhythm - Assessment/Plan Assessment/Plan: 1. Sepsis 2/2 Streptococcal infection - plan for KATHLEEN on Wednesday 2. Episodes of NSVTs - Asymptomatic; will start Coreg 3.125mg 1/2 tab BID and check Mg level; 3. Chronic anemia MAR reviewed * Echo on 12/30/2019 with EF 50-55%, mild-mod LAE, mild MR and TR Pt. seen and eval. by me. I agree with the A/P by the GUN PROFILER. Dr. Sawant would like a CT of the abdomen and if negative for a site of infection then plan for KATHLEEN. I can do the KATHLEEN at any time. Await CT result. dre
[2019-12-31] MEDS ORDERED: Carvedilol 3.125 MG TAB PO SCH (13:00)
[2019-12-31] MEDS: cefTRIAXone\\ROCEPHIN 2 GM in Sodium Chloride 0.9% 100 ML IVPB SCH (13:13)
--- NOTE | 2019-12-31 16:52 | PRG ---
DATE OF SERVICE: 12/31/2019 SUBJECTIVE: Feeling better each day. No headaches, respiratory symptoms, or abdominal pain. Voiding without difficulty. OBJECTIVE: VITAL SIGNS: Continues to be afebrile, T-max 99.1; BP 107/53; pulse 108, respirations 20; O2 saturations 98%. HEENT: Normal. LUNGS: Clear. ABDOMEN: Soft, not distended. HEART: S1 and S2. Regular rate. NEURO: Nonfocal. LABORATORY DATA: White cell count last checked yesterday was 16.3, hemoglobin 10.1, platelets 425, 82% neutrophils. A CT is pending. The patient had to be given protocol because of reported iodine allergy. ASSESSMENT AND DISCUSSION: Febrile illness protracted with Streptococcus viridans bacteremia, possibility of endocarditis is high in the differential diagnosis, but we will check a CT of the abdomen prior to KATHLEEN. If CT is normal, then a KATHLEEN will be the next step to define the discharge planning in terms of duration and type of antimicrobial. Job ID: [id number]
[2019-12-31] MEDS ORDERED: predniSONE 50 MG TAB PO SCH (17:30)
[2019-12-31] MEDS ORDERED: diphenhydrAMINE 50 MG CAP PO SCH ×2 (17:30)
[2019-12-31] MEDS: ALPRAZolam 0.5 MG TAB PO PRN (17:42)
[2019-12-31] MEDS: Carvedilol 3.125 MG TAB PO SCH (20:03)
[2019-12-31] MEDS: predniSONE 50 MG TAB PO SCH (20:04)
[2020-01-01] MEDS: predniSONE 50 MG TAB PO SCH ×2 (01:40→07:44)
[2020-01-01] MEDS: Carvedilol 3.125 MG TAB PO SCH ×2 (07:44→20:03)
[2020-01-01] MEDS: Enoxaparin Sodium 40 MG/0.4 ML SYRINGE SC SCH (07:44)
[2020-01-01] MEDS: Famotidine 20 MG TAB PO SCH ×2 (07:44→20:03)
[2020-01-01] MEDS: ALPRAZolam 0.5 MG TAB PO PRN ×2 (07:45→20:03)
[2020-01-01] MEDS ORDERED: diphenhydrAMINE 50 MG CAP PO SCH (08:00)
--- NOTE | 2020-01-01 08:26 | PRG ---
DATE OF SERVICE: 01/01/2020 SUBJECTIVE: The patient has been moved out to the floor. He is actually breathing better. Has no acute complaints. OBJECTIVE: VITAL SIGNS: Temperature 96.2, pulse 104, respirations 18, O2 saturation 96% on 2 L, and blood pressure 112/53. Intake 1740, output 1200. HEENT: Unremarkable. NECK: No JVD. LUNGS: Fairly clear. CARDIAC: S1, S2. Slightly tachycardic. ABDOMEN: Soft. EXTREMITIES: No edema. LABORATORY DATA: No new labs were taken today. ASSESSMENT: 1. Strep viridans infection, source not clear. 2. Pneumonitis versus pulmonary edema from diastolic heart dysfunction. PLAN: Looks like he will eventually have a KATHLEEN to clear his heart valves. He will probably need prolonged antibiotics with strep viridans. We will continue to follow with you. Job ID: [id number]
--- NOTE | 2020-01-01 09:48 | PDOC.HOSPP ---
- Subjective Encounter Date: 01/01/20 Encounter Time: 09:00 Subjective: no sob or chest pain is ambulating in room drinking oral contrast for CT - Objective Vital Signs & Weight: Vital Signs (12 hours) Temp Pulse Resp BP BP Pulse Ox 01/01/20 07:48 96.2 F L 104 H 18 112/53 L 96 01/01/20 03:16 96.0 F L 104 H 20 116/55 L 95 12/31/19 23:31 97.5 F L 107 H 20 111/56 L 97 Weight Admit Weight 276 lb 7.355 oz Weight 276 lb 7.355 oz Most Recent Monitor Data Heart Rate from ECG 107 NIBP 104/46 NIBP BP-Mean 65 Respiration from ECG 44 SpO2 99 I&O: 12/31/19 01/01/20 01/02/20 06:59 06:59 06:59 Intake Total 1740 Output Total 1200 Balance 540 Result Diagrams: 12/30/19 04:35 12/31/19 04:18 Hospitalist ROS - Medication Medications: Active Medications Generic Name Dose Route Start Last Admin Trade Name Freq PRN Reason Stop Dose Admin Alprazolam 0.5 mg 12/28/19 18:41 01/01/20 07:45 Xanax PO 0.5 mg BIDPRN PRN Administration Anxiety Carvedilol 1.5625 mg 12/31/19 21:00 01/01/20 07:44 Coreg PO 1.5625 mg BID BRITTANY Administration Enoxaparin Sodium 40 mg 12/29/19 09:00 01/01/20 07:44 Lovenox SC 40 mg 0900 BRITTANY Administration Famotidine 20 mg 12/28/19 21:00 01/01/20 07:44 Pepcid PO 20 mg BID BRITTANY Administration Ceftriaxone Sodium 2 gm/ 100 mls @ 200 mls/hr 12/29/19 13:15 12/31/19 13:13 Sodium Chloride IVPB 100 mls Q24HR BRITTANY Administration - Exam General Appearance: awake alert Eye: PERRL, anicteric sclera ENT: no oropharyngeal lesions, moist mucosa Neck: supple, no JVD Heart: RRR, no murmur Respiratory: no wheezes, no rales Gastrointestinal: soft, non-tender, non-distended, normal bowel sounds Extremities: no cyanosis, no edema Neurological: cranial nerve grossly intact, no focal deficits Psychiatric: normal affect, A&O x 3 Hosp A/P (1) Sepsis Code(s): A41.9 - SEPSIS, UNSPECIFIED ORGANISM Status: Acute Qualifiers: Sepsis type: Streptococcus, unspecified Severe sepsis shock status: without septic shock (2) Streptococcal bacteremia Code(s): R78.81 - BACTEREMIA; B95.5 - UNSP STREPTOCOCCUS THE CAUSE OF DISEASES CLASSD ELSWHR Status: Acute (3) Acute exacerbation of CHF (congestive heart failure) Code(s): I50.9 - HEART FAILURE, UNSPECIFIED Status: Acute Qualifiers: Heart failure type: diastolic Qualified Code(s): I50.33 - Acute on chronic diastolic (congestive) heart failure (4) Hypothyroidism Code(s): E03.9 - HYPOTHYROIDISM, UNSPECIFIED Status: Chronic Qualifiers: Hypothyroidism type: unspecified Qualified Code(s): E03.9 - Hypothyroidism , unspecified (5) Obesity Code(s): E66.9 - OBESITY, UNSPECIFIED Status: Chronic Qualifiers: Obesity classification: adult class 2 (BMI 35 - 39.9) (6) Chronic anemia Code(s): D64.9 - ANEMIA, UNSPECIFIED Status: Chronic - Plan is on ceftriaxone, await full culture results blood cs x2 is +ve for alpha hemolytic strep had covid 19 test x3 on 12/25 at [facility] -ve and 12/26 and 12/27 here both were -ve echo TTE shows no obvious veg, likely KATHLEEN in am CT abd to r/o abscess, contrast per in view of iodine allergy? hemostable
--- NOTE | 2020-01-01 10:01 | CT ---
CT ABDOMEN AND PELVIS WITH CONTRAST: HISTORY: Bacteremia. Abnormal liver panel. COMPARISON: None. FINDINGS: Abnormal opacities in both lower lobes concerning for pneumonia. Moderate bilateral pleural effusion s. Subcentimeter hypodensities of the spleen likely not clinically significant. No hepatic mass. The aortic contour is nonaneurysmal. Trace free fluid in the pelvis. There are no dilated loops of large or small bowel. The appendix is visualized and is normal. No hydronephrosis. No renal calculi are appreciated. No acute osseous abnormality. The pancreas is unremarkable as well as the adrenal glands. IMPRESSION: 1. Bilateral lower lobe pneumonia and moderate effusions. 2. No acute inflammatory process within the abdomen or pelvis. POS: HOME
[2020-01-01] MEDS: cefTRIAXone\\ROCEPHIN 2 GM in Sodium Chloride 0.9% 100 ML IVPB SCH (13:29)
--- NOTE | 2020-01-01 15:58 | PDOC.CPN ---
- Subjective Date: 01/01/20 Time: 15:59 Interval history: The pt seen and examined. No overnight events. No cardiac complaints. - Objective Allergies/Adverse Reactions: Allergies Allergy/AdvReac Type Severity Reaction Status Date / Time Iodine and Iodide Containing Allergy Unknown Verified 12/29/19 15:09 Produc Visit Medications: Current Medications Acetaminophen (Tylenol) 650 mg PO Q4H PRN PRN Reason: Headache/Fever/Mild Pain (1-3) Alprazolam (Xanax) 0.5 mg PO BIDPRN PRN PRN Reason: Anxiety Last Admin: 01/01/20 07:45 Dose: 0.5 mg Carvedilol (Coreg) 1.5625 mg PO BID [facility] Last Admin: 01/01/20 07:44 Dose: 1.5625 mg Enoxaparin Sodium (Lovenox) 40 mg SC 0900 [facility] Last Admin: 01/01/20 07:44 Dose: 40 mg Famotidine (Pepcid) 20 mg PO BID [facility] Last Admin: 01/01/20 07:44 Dose: 20 mg Ceftriaxone Sodium 2 gm/ (Sodium Chloride) 100 mls @ 200 mls/hr IVPB Q24HR [facility] Last Admin: 01/01/20 13:29 Dose: 100 mls Vital Signs & Weight: Vital Signs Temp Pulse Resp BP Pulse Ox 01/01/20 15:37 97.5 F L 112 H 16 113/55 L 96 01/01/20 11:13 97.5 F L 107 H 18 108/55 L 95 01/01/20 07:48 96.2 F L 104 H 18 112/53 L 96 01/01/20 07:25 96 Admit Weight 276 lb 7.355 oz Weight 276 lb 7.355 oz - Physical Exam General: alert & oriented x3 HEENT: mucus membranes moist Neck: supple neck Cardiac: regular rate and rhythm, S1/S2 Lungs: clear to auscultation Neuro: cranial nerve 2-12 intact Abdomen: unremarkable - Labs Result Diagrams: 12/30/19 04:35 12/31/19 04:18 Troponin/CKMB CK-MB (CK-2) 1.6 ng/mL (0-6.6) 12/28/19 12:44 Troponin I 0.200 ng/mL (< 0.028) H 12/29/19 04:04 - Telemetry Sinus rhythms and dysrhythmias: sinus tachycardia - Assessment/Plan Assessment/Plan: 1. Sepsis 2/2 Streptococcal infection - plan for KATHLEEN on Wednesday; 2. Episodes of NSVTs - Asymptomatic;on Coreg 3. Chronic anemia 4. Tarchycardia - Will increase Coreg 3.125mg /2 tab to TID; MAR reviewed * Echo on 12/30/2019 with EF 50-55%, mild-mod LAE, mild MR and TR Pt. seen and eval. by me. I agree with the A/P by the COMPONENTS ENGINEER. The CT scan indicated bilateral lower lobe PNA and effusions. Plan for KATHLEEN tomorrow. He does feel a little better and O2 sats are stable. dre
[2020-01-01] MEDS ORDERED: Carvedilol 3.125 MG TAB PO SCH (16:00)
--- NOTE | 2020-01-01 17:13 | PRG ---
DATE OF SERVICE: 01/01/2020 SUBJECTIVE: Mr. Arora is feeling okay, coughing a little bit, a little bit dyspneic. No abdominal pain. No vomiting. OBJECTIVE: VITAL SIGNS: He has been afebrile. Blood pressure 113/55, pulse 112, respirations 16, and O2 saturation 96. GENERAL: He does not appear in distress. LUNGS: Clear except for the very base where there are diminished breath sounds. HEART: S1 and S2, regular rate. ABDOMEN: Soft, not distended. LABORATORY DATA: White cell count 16.3, hemoglobin 10, platelets 425, 82% neutrophils. The patient had abdomen and pelvis CT, which showed bilateral lower lobe pneumonia and moderate effusions. No inflammatory process in the abdomen or pelvis. ASSESSMENT AND DISCUSSION: Febrile illness protracted with strep viridans bacteremia, negative COVID x2. Endocarditis now seems to be the only remaining concern. KATHLEEN scheduled for tomorrow. Even with a negative KATHLEEN, we will have to treat him empirically in view of the high pretest likelihood with Rocephin. PICC line placement. Job ID: [id number]
[2020-01-02] MEDS ORDERED: Benzonatate 100 MG CAP PO PRN (03:34)
[2020-01-02] MEDS ORDERED: Furosemide 40 MG/4 ML VIAL SLOW IVP SCH (07:30)
--- NOTE | 2020-01-02 08:03 | PRG ---
DATE OF SERVICE: 01/02/2020 SUBJECTIVE: This morning I found him up in a chair, very short of breath, O2 saturation was running in the low 90s on 2 L. OBJECTIVE: VITAL SIGNS: Temperature 97.4, pulse 106, respirations 32, blood pressure 110/54. HEENT: Unremarkable. NECK: No JVD. LUNGS: He has diminished breath sounds in the bases. CARDIAC: S1, S2, regular. ABDOMEN: Soft. EXTREMITIES: No edema. LABORATORY DATA: No new labs were done today. ASSESSMENT: 1. Diastolic heart failure. 2. Strep viridans bacteremia. PLAN: 1. KATHLEEN plan today. 2. He has been given some Lasix. Further disposition to follow. Job ID: [id number]
[2020-01-02] MEDS ORDERED: PROPOFOL 0 ML ONE (09:31)
[2020-01-02] MEDS ORDERED: PROPOFOL 40 ML ONE (09:32)
[2020-01-02] MEDS ORDERED: Lidocaine Viscous Sol 2% 15 ml UD Cup ONE (09:35)
[2020-01-02] MEDS ORDERED: PROPOFOL 200 MG/20 ML VIAL ONE (09:55)
--- NOTE | 2020-01-02 11:32 | PDOC.HOSPP ---
- Subjective Encounter Date: 01/02/20 Encounter Time: 10:45 Subjective: sob is better after lasix and neb treatment is amb in room, on nasal canula oxygen - Objective Vital Signs & Weight: Vital Signs (12 hours) Temp Pulse Resp BP BP BP Pulse Ox 01/02/20 10:40 98.0 F 116 H 28 H 114/51 L 98 01/02/20 07:56 97.5 F L 112 H 20 129/59 L 94 L 01/02/20 05:03 97.4 F L 106 H 32 H 110/54 L 92 L 01/02/20 03:30 97.8 F 103 H 25 H 109/53 L 96 01/02/20 00:22 95 01/01/20 23:39 97.4 F L 105 H 24 H 113/56 L 98 Weight Admit Weight 276 lb 7.355 oz Weight 276 lb 7.355 oz Most Recent Monitor Data Heart Rate from ECG 107 NIBP 104/46 NIBP BP-Mean 65 Respiration from ECG 44 SpO2 99 I&O: 01/01/20 01/02/20 01/03/20 06:59 06:59 06:59 Intake Total 1740 1700 Output Total 1200 775 Balance 540 925 Result Diagrams: 12/30/19 04:35 12/31/19 04:18 Hospitalist ROS - Medication Medications: Active Medications Generic Name Dose Route Start Last Admin Trade Name Freq PRN Reason Stop Dose Admin Alprazolam 0.5 mg 12/28/19 18:41 01/01/20 20:03 Xanax PO 0.5 mg BIDPRN PRN Administration Anxiety Benzonatate 100 mg 01/02/20 03:34 01/02/20 03:43 Tessalon PO 100 mg Q8H PRN Administration Cough Carvedilol 1.5625 mg 01/01/20 21:00 01/01/20 20:03 Coreg PO 1.5625 mg TID BRITTANY Administration Enoxaparin Sodium 40 mg 12/29/19 09:00 01/01/20 07:44 Lovenox SC 40 mg 0900 BRITTANY Administration Famotidine 20 mg 12/28/19 21:00 01/01/20 20:03 Pepcid PO 20 mg BID BRITTANY Administration Ceftriaxone Sodium 2 gm/ 100 mls @ 200 mls/hr 12/29/19 13:15 01/01/20 13:29 Sodium Chloride IVPB 100 mls Q24HR BRITTANY Administration Sodium Chloride 10 ml 01/02/20 09:00 01/02/20 07:49 Flush - Normal Saline IVF 10 ml Q12HR BRITTANY Administration - Exam General Appearance: awake alert Eye: PERRL, anicteric sclera ENT: no oropharyngeal lesions, moist mucosa Neck: supple, no JVD Heart: RRR, no murmur Respiratory: no wheezes, no rales, rhonchi Gastrointestinal: soft, non-tender, non-distended, normal bowel sounds Extremities: no cyanosis, no edema Neurological: cranial nerve grossly intact, no focal deficits Psychiatric: A&O x 3 Hosp A/P (1) Sepsis Code(s): A41.9 - SEPSIS, UNSPECIFIED ORGANISM Status: Acute Qualifiers: Sepsis type: Streptococcus, unspecified Severe sepsis shock status: without septic shock (2) Streptococcal bacteremia Code(s): R78.81 - BACTEREMIA; B95.5 - UNSP STREPTOCOCCUS THE CAUSE OF DISEASES CLASSD ELSWHR Status: Acute (3) Acute exacerbation of CHF (congestive heart failure) Code(s): I50.9 - HEART FAILURE, UNSPECIFIED Status: Acute Qualifiers: Heart failure type: diastolic Qualified Code(s): I50.33 - Acute on chronic diastolic (congestive) heart failure (4) Hypothyroidism Code(s): E03.9 - HYPOTHYROIDISM, UNSPECIFIED Status: Chronic Qualifiers: Hypothyroidism type: unspecified Qualified Code(s): E03.9 - Hypothyroidism , unspecified (5) Obesity Code(s): E66.9 - OBESITY, UNSPECIFIED Status: Chronic Qualifiers: Obesity classification: adult class 2 (BMI 35 - 39.9) (6) Chronic anemia Code(s): D64.9 - ANEMIA, UNSPECIFIED Status: Chronic - Plan is on ceftriaxone, await full culture results blood cs x2 is +ve for alpha hemolytic strep had covid 19 test x3 on 12/25 at [facility] -ve and 12/26 and 12/27 here both were -ve echo TTE shows thickened aortic valve leaflet, had KATHLEEN this am (await report) CT abd shows no obvious abscess hemostable for picc line and outpt antibiotics
[2020-01-02] MEDS: Enoxaparin Sodium 40 MG/0.4 ML SYRINGE SC SCH (12:03)
[2020-01-02] MEDS: Carvedilol 3.125 MG TAB PO SCH ×2 (12:03→14:44)
[2020-01-02] MEDS: Famotidine 20 MG TAB PO SCH (12:04)
[2020-01-02] MEDS: ALPRAZolam 0.5 MG TAB PO PRN (12:04)
--- NOTE | 2020-01-02 12:11 | SPC ---
Sonographic guided left upper extremity PICC placement HISTORY: Endocarditis. FINDINGS: After explaining the procedure and answering all questions, the left upper extremity was pr epped and draped in usual sterile fashion. Sterile technique, buffered local anesthesia, sonographic guidance, and a 22-gauge needle were used to carefully access the left brachial vein. Sta ndard technique was used to place the tip of a 4 [place] single lumen PICC so that the tip lies at the level of the cavoatrial junction. Catheter was flushed and secured externally. Patient tolerated the procedure well and was returned in unchanged condition. IMPRESSION : Left upper extremity PICC is ready for use.
--- NOTE | 2020-01-02 12:13 | RAD ---
Exam: Chest one view HISTORY:Bacteremia. Dyspnea. Comparison: 12/28/2019 FINDINGS: Cardiac silhouette: Normal Aorta: Unremarkable Pulmonary vessels: Normal Costophrenic angles: Clear LUNGS: Prominent bilateral perihilar interstitial and alveolar opacities. The degree of opacification has progressed. Pneumothorax: None Osseous abnormalities: None IMPRESSION: Worsening lung parenchymal interstitial and alveolar opacities.
[2020-01-02] MEDS: cefTRIAXone\\ROCEPHIN 2 GM in Sodium Chloride 0.9% 100 ML IVPB SCH (12:41)
--- NOTE | 2020-01-02 14:35 | DIS ---
DATE OF ADMISSION: 12/28/2019 DATE OF DISCHARGE: 01/02/2020 DISCHARGE DISPOSITION: To higher level tertiary care center. 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 SECONDARY DISCHARGE DIAGNOSES: Congestive heart failure exacerbation likely due to underlying vegetation and perivalvular abscess, hypothyroidism, obesity, and chronic anemia. PROCEDURES DONE DURING HOSPITALIZATION: The patient has had COVID-19 test nearly three times, all of which are negative. He had an initial test done on 12/25 at [facility], which was reported negative. He has had COVID-19 test done here x2 in the last week, which have all been negative. Abdominal and pelvic CAT scan done showed no acute inflammatory process within the abdomen or pelvis. There was bilateral lower lobe pneumonia with moderate effusions. Transthoracic echo showed ejection fraction of 50% to 55%. The aortic valve was abnormally thickened and cannot rule out vegetation. Ejection fraction 50% to 55%. A transesophageal echo was done by Dr. Zarate this morning. The official reports are pending. Per my conversation with Dr. Zarate, the patient had vegetation on mitral and aortic valve with suspected perivalvular abscess. Blood cultures 2/2 grew Streptococcus gordonii sensitive to all antibiotics except erythromycin. Respiratory virus panel PCR is negative. Influenza A and B antigen negative. H and H 10 and 33, platelet count 425 with 82% neutrophils, and white count of 16. PT/INR and PTT within normal limits. BUN and creatinine of 12 and 0.6, AST 35, ALT 74, alkaline phosphatase 136, total bilirubin 0.7, BNP 730, albumin 2.8. CRP 7.85, ferritin 571, procalcitonin 0.18. UA was negative for any infection. Acute hepatitis panel was nonreactive. Urine for Legionella pneumophila antigen negative. Urine for strep pneumo antigen negative. COVID-19 PCR was not detected on 12/28/2019, and he had initial COVID-19 PCR done on 12/25/2019, which was negative as well. DISCHARGE MEDICATIONS: 1. The patient is to continue ceftriaxone 2 g IV for infective endocarditis. 2. Coreg 1.5625 mg p.o. three times daily. 3. Pepcid 20 mg twice daily. 4. Lasix 20 mg twice daily. 5. DuoNeb q.6 hourly. ALLERGIES: ALLERGIC TO IODINE. DISCHARGE PLAN: The patient will be discharged to higher level tertiary care center to assess his perivalvular abscess with vegetation on both mitral and aortic valves. BRIEF COURSE DURING HOSPITALIZATION: The patient initially got admitted on the with complaints of shortness of breath. He has been sick for almost 2 weeks with off and on cough, fever, and shortness of breath. Initial COVID test done at [facility] was negative. He had come to ER on the here when COVID test was done, which was negative. He had a repeat COVID test done on the , which was negative again. 2/2 blood cultures done on admission grew alpha-hemolytic streptococcus species. He has had consultation with Dr. Sawant for Infectious Disease, Dr. Starkey for Pulmonology, and Dr. Zarate for Cardiology. A transthoracic echo done showed possible thickening of the aortic valve leaflet. A transesophageal echo was done, which shows findings suspicious for perivalvular abscess with aortic and mitral vegetations. His CT of the abdomen and pelvis with contrast done, did not reveal any acute inflammatory process. He is otherwise hemodynamically stable and will be shortly discharged to higher level care for reasons mentioned above. Please see a [id number] documentation for the day of discharge on [facility]. A total of 35 minutes was spent on discharge plan. The patient will be discharged as soon as a bed becomes available at a tertiary center and transfer center is working on placing him. Job ID: [id number]
--- NOTE | 2020-01-02 15:20 | PRG ---
DATE OF SERVICE: 01/02/2020 SUBJECTIVE: The patient is a bit tachypneic and a little bit diaphoretic. He had a KATHLEEN done today. Dr. Zarate contacted me and informed me of the finding of 2 areas of vegetation without evidence of abscess in one of them. I believe the aortic one. He probably has aortic insufficiency and that explains the patient's CHF findings. OBJECTIVE: VITAL SIGNS: Otherwise with tachycardia, his O2 saturation 98%. GENERAL: He is somewhat diaphoretic, oriented. Follows commands. LUNGS: With bibasilar inspiratory crackles. HEART: S1 and S2. Regular rate. ABDOMEN: Soft, not distended. EXTREMITIES: Moves all extremities equally. No edema. LABORATORY DATA: White cell count 16.3, hemoglobin 10.1. Creatinine 0.69. BNP 730. Repeat chest x-ray with worsening parenchymal interstitial alveolar opacities due to pulmonary edema. 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 The patient will be transferred to [place]. Will need surgical intervention most likely and protracted antimicrobial therapy. Job ID: [id number]
[2020-01-02 15:54] VITALS: BP 116/52; TEMP 97.2
--- NOTE | 2020-01-03 09:07 | PQF ---
SHAWN WHIPPLE VINAYA KUMAR MD [id number] [facility]-229 [id number] CLINICAL DOCUMENTATION CLARIFICATION FORM: POST DISCHARGE Addendum to original discharge summary date: ____ Late entry note date: __ DATE:01/03/2020 ATTN: Davion Gonzalez Please exercise your independent, professional judgment in responding to the clarification form. Clinical indicators are provided on the bottom of this form for your review Please check appropriate box(s) to clarify if the following diagnosis has been ruled in or ruled out: Sepsis [ x] Ruled in diagnosis [ x] Continue to treat [ ] Resolved [ ] Ruled out diagnosis [ ] Cannot rule out diagnosis [ ] Other diagnosis [ ] Unable to determine For continuity of documentation, please document condition throughout progress notes and discharge summary. Thank You. CLINICAL INDICATORS - SIGNS / SYMPTOMS / LABS Labroatory 12/27 WBC 15.2, Neutrophils 6.5, Lymphocytes 7.8, Lactic Acid 1.0 Blood culture 12/27 Positive with Streptococcus Gordonii Vital signs 12/27 BP 110/47, Pulse 117, Resp 21 ED Notes p4 12/27 sepsis H&P p1 12/27 Dr Talavera pt states that he has been having Shortness of breath H&P p1 12/27 Dr Talavera Mild leukocytosis, unclear at this time Discharge summary p1 12/27 Dr Araya Mitral aortic valve vegetation with suspected perivalvular abscess Discharge summary p1 12/27 Dr Araya Streptococcus gordoniie, bacteremia Discharge summary p1 12/27 Dr Araya There was bilateral lower lobe pneumonia with moderate effusions RISK FACTORS Consult p1 12/27 - HTN Consult p1 12/27 hypothyroidism Consult 12/27 CKD Discharge summary p1 12/27 Obesity Discharge summary p1 12/27 Chronic Anemia Discharge summary p1 12/27 CHF exacerbation Discharge summary p1 12/27 PNA Discharge summary p1 12/27 Perivalvular abscess TREATMENTS MAR 12/27 IV Ceftriaxone 2gm NOV 07 IV Levofloxacin 750 mg NOV 07 Zithromax 500mg oral NOV 07 IVF NS 1L Blood culture 09/28 Respiratory Panel 12/27 Oxygen 4L ID consult 12/28 [place] Chest Xray 12/27 PICC 01/01 (This form is maintained as a part of the permanent medical record) 2014 [employer]. All Rights Reserved [email or web address]
--- NOTE | 2020-01-03 15:19 | EKG ---
Test Reason : Blood Pressure : / mmHG Vent. Rate : 114 BPM Atrial Rate : 114 BPM P-R Int : 142 ms QRS Dur : 110 ms QT Int : 354 ms P-R-T Axes : 050 043 086 degrees QTc Int : 487 ms Sinus tachycardia No STEMI Otherwise normal ECG Confirmed by JANIYA ARIAS M.D. ([id number]), state editor DANITA CARROLL ([id number]) on 01/03/2020 3:18:40 PM Referred By: Confirmed By:JANIYA ARIAS M.D.
== END 2020-01-02 17:11 | disposition short-term general hospital (02) | DRG 871 ==
LOC: ERS 12:23 → CCU 14:33 → 2SW 12-29 11:53
PROVIDERS: ADMIT Internal Medicine; ATTEND Internal Medicine
PROC: 8E0ZXY6 Isolation (ICD-10-PCS; 2019-12-28)
PROC: 3E0234Z Introduction of Serum, Toxoid and Vaccine into Muscle, Percutaneous Approach (ICD-10-PCS; 2019-12-29)
PROC: 02HV33Z Insertion of Infusion Device into Superior Vena Cava, Percutaneous Approach (ICD-10-PCS; principal; 2020-01-02)
PROC: B548ZZA Ultrasonography of Superior Vena Cava, Guidance (ICD-10-PCS; 2020-01-02)
PROC: B24BZZ4 Ultrasonography of Heart with Aorta, Transesophageal (ICD-10-PCS; 2020-01-02)
DX: A40.0 Sepsis due to streptococcus, group A (principal); I33.0 Acute and subacute infective endocarditis; I50.33 Acute on chronic diastolic (congestive) heart failure; J18.9 Pneumonia, unspecified organism; I13.0 Hypertensive heart and chronic kidney disease with heart failure and stage 1 through stage 4 chronic kidney disease, or unspecified chronic kidney disease; I47.2 Ventricular tachycardia; R78.81 Bacteremia; E87.1 Hypo-osmolality and hyponatremia; Z20.828 Contact with and (suspected) exposure to other viral communicable diseases; E03.9 Hypothyroidism, unspecified; E87.6 Hypokalemia; E66.9 Obesity, unspecified; N18.9 Chronic kidney disease, unspecified; D63.1 Anemia in chronic kidney disease; I08.0 Rheumatic disorders of both mitral and aortic valves; B95.0 Streptococcus, group A, as the cause of diseases classified elsewhere; Z23 Encounter for immunization; Z87.442 Personal history of urinary calculi; Z91.041 Radiographic dye allergy status; Z79.899 Other long term (current) drug therapy; Z68.36 Body mass index [BMI] 36.0-36.9, adult
CPT/HCPCS: 36415; 36569; 71045; 71250; 74177; 80048; 80053; 80074; 80076; 81003; 81015; 82553; 82728; 83605; 83735; 83880; 84145; 84484; 85025; 85610; 85652; 85730; 86140; 87040; 87077; 87149; 87186; 87449; 87633; 87635; 87798; 87804; 87899; 90471; 90732; 93005; 93306; 93312; 94640; 94760; 96360; 96361; 96365; 96368; C1751; G0009; J0456; J0696; J1644; J1650; J1940; J1956; J2704; J3475; J3490; J7512; J7620; Q0163; U0003

== ENCOUNTER 2020-06-28 13:31 | Outpatient (CLI) | payer BC ==
--- NOTE | 2020-06-28 14:27 | CT ---
CT ABDOMEN AND PELVIS WITHOUT CONTRAST: 06/28/20 INDICATIONS: Hematuria, right flank pain. COMPARISON: Comparison made to recent CT abdomen and pelvis 01/01/20. FINDINGS: Images through the lung bases are clear. The bilateral effusions noted previously are no longer prese nt. The liver, spleen and pancreas appear unremarkable. Review of the kidneys shows a tiny 1 to 2 mm calcification in the mid pole collecting structures of t he left kidney. Evidence of another tiny 1 to 2 mm calcification in the upper pole collecting structu res of the left kidney. No other definite renal calcification. There is no hydronephrosis. The ureter s are normal caliber. The bladder is mildly distended. Mild prostatic hypertrophy with prostatic calcification. Aorta and retroperitoneum unremarkable. No adenopathy or free fluid. Colon unremarkable. Appendix tucker ears normal. There are scattered diverticula in the left colon. Osseous structures unremarkable. IMPRESSION: 1. At least two tiny nonobstructing calculi in the upper collecting structures of the left kidne y. 2. No acute process identified. POS: OFF
== END 2020-06-28 13:32 | disposition home or self-care (01) ==
LOC: SCSCT 13:31
PROVIDERS: ATTEND Urology
DX: N20.1 Calculus of ureter (principal); Z87.442 Personal history of urinary calculi
CPT/HCPCS: 74176; 81001; 87086